=== PATIENT | female | born 1950 | race Caucasian/White ===

== ENCOUNTER 2024-02-28 04:59 | Day surgery (SDC) | payer OTHER ==
[2024-02-25 09:55] VITALS: BMI 24.1
[2024-02-28 11:54] VITALS: TEMP 97.3
[2024-02-28] MEDS: IOHEXOL 180 MG/1 ML ML IJ ONE ×2 (13:48)
[2024-02-28] MEDS: LIDOCAINE HCL 1% PRESERVATIVE FREE - 30ML VIAL IJ ONE ×2 (13:51)
[2024-02-28] MEDS: DEXAMETHASONE SOD PHOSPHATE 10 MG/1 ML VIAL IVPUSH ONE ×2 (13:52)
[2024-02-28 14:17] VITALS: BP 130/70; PULSE 70; RESP 16
== END 2024-02-28 14:38 | disposition home or self-care (01) ==
LOC: JASU-SURG 04:59
PROVIDERS: ATTEND Pain Medicine Pain Medicine
PROC: 3E0R3BZ Introduction of Anesthetic Agent into Spinal Canal, Percutaneous Approach (ICD-10-PCS; 2024-02-28)
PROC: 3E0R33Z Introduction of Anti-inflammatory into Spinal Canal, Percutaneous Approach (ICD-10-PCS; principal; 2024-02-28 14:00)
DX: M54.16 Radiculopathy, lumbar region (principal)
CPT/HCPCS: 76000-TC-FY; J1100

== ENCOUNTER 2024-06-05 04:10 | Day surgery (SDC) | payer OTHER ==
[2024-06-03 10:18] VITALS: BMI 24.1
[2024-06-05] MEDS ORDERED: DEXAMETHASONE SOD PHOSPHATE 10 MG/1 ML VIAL ONE (07:27)
[2024-06-05] MEDS ORDERED: LIDOCAINE HCL/PF 1% SDV 5ML VIAL ONE (07:27)
[2024-06-05] MEDS ORDERED: ACETAMINOPHEN 500 MG TABLET (FP) PO PRN (08:51)
[2024-06-05] MEDS: LIDOCAINE 1% P/F 10 MG/ML VIAL INF ONE ×2 (10:52)
[2024-06-05] MEDS: DEXAMETHASONE SOD PHOSPHATE 10 MG/1 ML VIAL IVPUSH ONE ×2 (10:53)
[2024-06-05] MEDS: IOHEXOL 180 MG/1 ML ML IJ ONE (10:53)
[2024-06-05 11:16] VITALS: BP 119/70; PULSE 66; RESP 20; TEMP 97.8
== END 2024-06-05 11:40 | disposition home or self-care (01) ==
LOC: JASU-SURG 04:10
PROVIDERS: ATTEND Pain Medicine Pain Medicine
PROC: 3E0R3BZ Introduction of Anesthetic Agent into Spinal Canal, Percutaneous Approach (ICD-10-PCS; 2024-06-05)
PROC: 3E0R33Z Introduction of Anti-inflammatory into Spinal Canal, Percutaneous Approach (ICD-10-PCS; principal; 2024-06-05 10:30)
DX: M54.16 Radiculopathy, lumbar region (principal)
CPT/HCPCS: 76000-TC-FY; J1100